=== PATIENT | female | born 1970 | race African-American/Black ===

== ENCOUNTER → 2018-09-21 | Outpatient (CLI) | payer BC ==
--- NOTE | 2018-09-21 13:11 | Diagnostic Imaging Report ---
EXAMINATION: MRI of the lumbar spine without contrast HISTORY: Worsening chronic low back pain. COMPARISON: None. TECHNIQUE: Sagittal T1, T2, STIR; axial T2 and proton density. FINDINGS: It is assumed that there are 5 lumbar vertebrae. Curvature/Alignment: Normal lordosis. Vertebrae: No evidence of recent fracture, infection, or neoplasm. Small benign hemangioma in the L2 and L5 vertebral bodies. Conus: Normal, terminating at L2 Cauda equina: Unremarkable. Lower thoracic: Unremarkable. Paraspinal soft tissues: Unremarkable. Degenerative changes: L1-L2 to L4-L5: Unremarkable. L5-S1: - Prominent facet arthrosis with joint effusion, bone marrow edema and minimal periarticular soft tissue swelling, consistent with degenerative facet synovitis. -Minimal symmetric disc bulge. -Minimal anterolisthesis. -No spinal canal or foraminal stenoses IMPRESSION: 1. Minimal degenerative anterolisthesis at L5-S1. 2. Prominent degenerative facet synovitis at L5-S1. Signed by: Dr. Jalyn Mata M.D. on 09/21/2018 1:07 PM
== END ==
LOC: MRI 09:51
PROVIDERS: ATTEND Anesthesiology Pain Medicine
DX: M54.5 Low back pain (principal)
CPT/HCPCS: 72148